=== PATIENT | male | born 1975 | race Two or more races ===

== ENCOUNTER 2022-08-30 00:12 | Emergency (ER) | payer OTHER ==
[~2022-08-30] VITALS: Ht 170.2 cm; Wt 68.0 kg
[2022-08-30] MEDS ORDERED: BIKTARVY 30-121 EACH PO (00:25)
[2022-08-30] MEDS ORDERED: ZOVIRAX800 MG PO (00:26)
[2022-08-30] MEDS ORDERED: LAMICTAL200 MG PO (00:26)
[2022-08-30] MEDS ORDERED: LEVSIN/SL0.125 MG SL ×2 (06:59→07:01)
[2022-08-30] MEDS ORDERED: ONDANSETRON ODT4 MG PO ×2 (07:00→07:01)
[2022-08-30] MEDS ORDERED: PEPCID40 MG PO ×2 (07:00→07:01)
== END 2022-08-30 07:09 ==
LOC: ER 00:12
DX: K29.70 Gastritis, unspecified, without bleeding (principal); R10.9 Unspecified abdominal pain